=== PATIENT | female | born 1960 ===

== ENCOUNTER → 2024-04-11 | Outpatient (CLI) | payer SELFPAY | LOC: LAB SHORT 16:15 | DX: R30.0 Dysuria (principal) | CPT/HCPCS: 87077; 87086; 87186 ==

== ENCOUNTER → 2024-04-22 | Outpatient (CLI) | payer SELFPAY | LOC: LAB SHORT 18:52 → LAB 18:52 | DX: R30.0 Dysuria (principal); R35.0 Frequency of micturition; R31.9 Hematuria, unspecified | CPT/HCPCS: 87077; 87086; 87186 ==